=== PATIENT | male | born 2000 | race Asian ===

== ENCOUNTER 2022-12-27 06:05 | Inpatient (IN) | payer OTHER ==
[~2022-12-27] VITALS: Ht 160 cm; Wt 58.0 kg
[2022-12-27 06:44] LABS: HEMATOCRIT 54.2 % (42.0-52.0); HEMOGLOBIN 18.5 g/dl (13.5-17.5); MEAN CORPUSCULAR HEMOGLOBIN 29.4 pg (27.0-33.0); MEAN CORPUSCULAR HGB CONC 34.1 g/dl (32.0-36.5); MEAN CORPUSCULAR VOLUME 86.2 fl (80.0-96.0); PLATELET COUNT, AUTOMATED 303 10^3/uL (150-450); RED BLOOD COUNT 6.29 10^6/uL (4.30-6.10); WHITE BLOOD COUNT 8.5 10^3/uL (4.0-10.0)
[2022-12-27 07:04] LABS: ETHYL ALCOHOL (ETHANOL) 0.242 % (0.000-0.010)
[2022-12-27 07:05] LABS: ACETAMINOPHEN LEVEL < 2.0 UG/ML (10.0-20.0); SALICYLATE LEVEL < 3.0 MG/DL (<30)
[2022-12-27 07:09] LABS: ALBUMIN 4.3 G/DL (3.2-5.2); ALKALINE PHOSPHATASE 75 U/L (46-116); ALT/SGPT 21 U/L (7.0-40); AST/SGOT 25 U/L (<34); BILIRUBIN,DIRECT 0.2 MG/DL (<0.4); BILIRUBIN,TOTAL 0.9 MG/DL (0.3-1.2); BLOOD UREA NITROGEN 13 MG/DL (9-23); CALCIUM LEVEL 9.2 MG/DL (8.5-10.1); CARBON DIOXIDE LEVEL 23 MMOL/L (20-31); CHLORIDE LEVEL 102 MMOL/L (98-107); CREATININE FOR GFR 0.96 MG/DL (0.70-1.30); GLOMERULAR FILTRATION RATE > 60.0 (>60); GLUCOSE, FASTING 87 MG/DL (60-100); POTASSIUM SERUM 4.6 MMOL/L (3.5-5.1); SODIUM LEVEL 140 MMOL/L (136-145); THYROID STIMULATING HORMONE 1.064 uIU/ML (0.55-4.78); TOTAL PROTEIN 7.6 G/DL (5.7-8.2)
[2022-12-27 07:10] LABS: CPK CREATINE PHOSPHOKINASE 200 U/L (46-171)
[2022-12-27] MEDS ORDERED: NS 1,000 ML IV ONE ×2 (07:45)
[2022-12-27 08:09] LABS: AMPHETAMINES LEVEL URINE NEGATIVE (NEGATIVE); BARBITURATES URINE NEGATIVE (NEGATIVE); BENZODIAZEPINES URINE NEGATIVE (NEGATIVE); CANNABINOIDS URINE NEGATIVE (NEGATIVE); COCAINE METABOLITE URINE NEGATIVE (NEGATIVE); METHADONE URINE NEGATIVE (NEGATIVE); OPIATES URINE NEGATIVE (NEGATIVE); PHENCYCLIDINE URINE NEGATIVE (NEGATIVE)
[2022-12-27] MEDS ORDERED: HOME MED LIST COMPLETE! XX SCH (09:05)
[2022-12-27] MEDS ORDERED: LORazepam 2 MG TAB PO PRN (20:40)
[2022-12-27] MEDS ORDERED: MOM 30ML SUSPENSION UDC PO PRN (20:45)
[2022-12-27] MEDS ORDERED: IBUPROFEN 400MG TAB PO PRN (20:45)
[2022-12-27 22:45] VITALS: BP 143/87
[2022-12-27 22:50] VITALS: BP 143/87
[2022-12-27] MEDS: THIAMINE 100 MG TAB PO SCH (23:27)
[2022-12-27] MEDS: traZODone 50 MG TAB PO PRN (23:40)
[2022-12-28 06:52] VITALS: BP 113/68
[2022-12-28 07:09] VITALS: BP 113/68
[2022-12-28] MEDS: NICOTINE 21MG/24HR 1 EA TRANSDERMAL TD SCH (09:00)
[2022-12-28] MEDS: MULTIVITAMINS/MINERALS THERAP 1 TAB PO SCH (10:14)
[2022-12-28] MEDS: FOLIC ACID 1MG TAB PO SCH (10:14)
[2022-12-28] MEDS: THIAMINE 100 MG TAB PO SCH ×2 (10:14→21:30)
[2022-12-28] MEDS: SERTRALINE HCL 25 MG TABLET PO SCH (12:21)
[2022-12-28 14:23] VITALS: BP 149/81
[2022-12-28 18:40] VITALS: BP 168/87
[2022-12-28] MEDS: traZODone 50 MG TAB PO PRN (21:30)
[2022-12-28 22:10] VITALS: BP 126/83
[2022-12-29 06:10] VITALS: BP 131/78
[2022-12-29 06:13] VITALS: BP 131/78
[2022-12-29] MEDS: NICOTINE 21MG/24HR 1 EA TRANSDERMAL TD SCH (09:00)
[2022-12-29] MEDS: THIAMINE 100 MG TAB PO SCH ×2 (09:25→21:37)
[2022-12-29] MEDS: SERTRALINE HCL 25 MG TABLET PO SCH (09:25)
[2022-12-29] MEDS: MULTIVITAMINS/MINERALS THERAP 1 TAB PO SCH (09:25)
[2022-12-29] MEDS: FOLIC ACID 1MG TAB PO SCH (09:25)
[2022-12-29 14:18] VITALS: BP 136/91
[2022-12-29 18:30] VITALS: BP 136/91
[2022-12-29] MEDS: traZODone 50 MG TAB PO PRN (21:37)
[2022-12-29 22:14] VITALS: BP 111/66
[2022-12-30 06:55] VITALS: BP 137/82
[2022-12-30 06:56] VITALS: BP 137/82
[2022-12-30] MEDS: NICOTINE 21MG/24HR 1 EA TRANSDERMAL TD SCH (09:00)
[2022-12-30] MEDS: FOLIC ACID 1MG TAB PO SCH (09:34)
[2022-12-30] MEDS: MULTIVITAMINS/MINERALS THERAP 1 TAB PO SCH (09:34)
[2022-12-30] MEDS: THIAMINE 100 MG TAB PO SCH (09:34)
[2022-12-30 17:28] VITALS: BP_SYST 105; BP_SYST 143; BP_DIAS 63; BP_DIAS 68
[2022-12-30] MEDS: traZODone 50 MG TAB PO PRN (20:35)
[2022-12-30] MEDS ORDERED: SERTRALINE HCL 25 MG TABLET PO SCH (21:00)
[2022-12-31 06:40] VITALS: BP 155/81
[2022-12-31] MEDS: NICOTINE 21MG/24HR 1 EA TRANSDERMAL TD SCH (08:46)
[2022-12-31] MEDS ORDERED: TRAZ-252 PO (09:36)
[2022-12-31] MEDS ORDERED: NICO21PAT TD (09:36)
[2022-12-31] MEDS ORDERED: SERT25TA21 PO (09:36)
== END 2022-12-31 10:00 | disposition home or self-care (01) | DRG 885 ==
LOC: EDBD 06:05 → M ED 06:05 → M ED INP 20:36 → M PSY 22:26
PROVIDERS: ADMIT Student in an Organized Health Care Education/Training Program; ATTEND Student in an Organized Health Care Education/Training Program
DX: F32.89 Other specified depressive episodes (principal); R45.851 Suicidal ideations; F43.20 Adjustment disorder, unspecified; F17.290 Nicotine dependence, other tobacco product, uncomplicated; Z71.6 Tobacco abuse counseling; Z20.822 Contact with and (suspected) exposure to COVID-19